=== PATIENT | female | born 1950 | race Caucasian/White ===

== ENCOUNTER 2017-03-05 17:11 | Emergency (ER) | payer BC ==
--- NOTE | 2017-03-05 17:34 | PDOC ---
History of Present Illness - History of Present Illness Initial Comments: 03/05/17 17:43 The patient is a 66 year old female with a past medical hx of HTN, breast cancer who presents to the ED complaining of pain to her right wrist for one week. The patient denies any trauma or injury to her wrist. She denies any overuse in her wrist. She reports she woke up one week ago with the pain and there has been no improvement. She has not taken any OTC medications for it. The patient denies any radiation of pain, numbness, or tingling. The patient has no further complaints at this time. <Lisseth Sousa - Last Filed: 03/05/17 18:20> - General History Source: Patient Exam Limitations: No Limitations <Khushbu José - Last Filed: 03/05/17 18:35> - General Chief Complaint: Pain Stated Complaint: RIGHT WRIST PAIN Time Seen by Provider: 03/05/17 17:20 Past History <Lisseth Sousa - Last Filed: 03/05/17 18:20> <Khushbu José - Last Filed: 03/05/17 18:35> - Past Medical History Allergies/Adverse Reactions: Allergies Allergy/AdvReac Type Severity Reaction Status Date / Time No Known Allergies Allergy Verified 03/05/17 17:51 Home Medications: Ambulatory Orders Exemestane [Aromasin -] 25 mg PO HS 03/05/17 Losartan/Hydrochlorothiazide [Hyzaar 50-12.5 Tablet] 1 each PO HS 03/05/17 Palbociclib [Ibrance] 125 mg PO HS 03/05/17 Review of Systems - Review of Systems Able to Perform ROS?: Yes Comments:: 03/05/17 17:51 GENERAL/CONSTITUTIONAL: No: fever, chills MUSCULOSKELETAL: +Right wrist pain NEUROLOGIC: No: paresthesias <Lisseth Sousa - Last Filed: 03/05/17 18:20> *Physical Exam - Physical Exam Comments: 03/05/17 18:20 GENERAL: The patient is in no acute distress. MUSCULOSKELETAL: +Tenderness to the right wrist with flexion and extension. SKIN: Warm, Dry, normal turgor, no rashes or lesions noted. <Lisseth Sousa - Last Filed: 03/05/17 18:20> Medical Decision Making - Medical Decision Making 03/05/17 17:34 A portion of this note was documented by scribe services under my direction. I have reviewed the details of the note, within reason, and agree with the documentation with the following case summary and management plan written by me. Nursing documentation reviewed and incorporated into medical decision making 03/05/17 18:30 This is a 66 yo RHD F h/o breast cancer presenting to the ER with a complaint of wrist pain She awoke with symptoms approximately 1 week ago No fevers No history of gout NO TRAUMA Mild swelling When she awakens in the morning, she sometimes feels like her wrist is "Catching " No prior episodes like this Pain worsens with wrist movement On examination: No snuff box tenderness No erythema No swelling 2+ RP, UP Hand warm Brisk cap refill Flexion and extension at wrist Xray appears to demonstrate no fracture Pt did not want motrin Will discharge to home Pt can follow up with her Orthopedist Dr Saleh Pt placed in wrist splint Will discharge to home follow up within 1 week <Khushbu José - Last Filed: 03/05/17 18:35> *DC/Admit/Observation/Transfer <Lisseth Sousa - Last Filed: 03/05/17 18:20> - Discharge Dispostion Admit: No <Khushbu José - Last Filed: 03/05/17 18:35> Diagnosis at time of Disposition: Right wrist pain - Discharge Dispostion Disposition: HOME Condition at time of disposition: Stable - Patient Instructions Printed Discharge Instructions: DI for Wrist Pain, Wrist Fracture Additional Instructions: Olive Alen Thank you for coming in to the ER today Please follow up with your orthopedic doctor within 2-3 days Sometimes, patients can have subtle wrist fractures that are not readily visible on Xray and require additional imaging like MRI Please take motrin as needed for pain Return to the ER IMMEDIATELY for any new symptoms, worsening of your pain, new trauma to the wrist, any other concerns or complaints
[2017-03-05 18:02] VITALS: BP 142/73; PULSE 90; TEMP 98.5; BMI 24.3
[2017-03-05] MEDS ORDERED: IBUPROFEN 600 MG TABLET (FP) PO ONE (18:13)
== END 2017-03-05 18:46 | disposition home or self-care (01) ==
LOC: FER 17:11
PROC: 2W3EX1Z Immobilization of Right Hand using Splint (ICD-10-PCS; principal; 2017-03-05)
DX: M25.531 Pain in right wrist (principal); Z85.3 Personal history of malignant neoplasm of breast; I10 Essential (primary) hypertension
CPT/HCPCS: 73110-TC-RT; 99282-25

== ENCOUNTER 2023-09-17 12:58 | Emergency (ER) | payer BC, OTHER ==
[2023-09-17 13:13] VITALS: BP 140/69; PULSE 95; RESP 18; TEMP 98.9; BMI 20.3
[2023-09-17] MEDS ORDERED: LIDOCAINE 2%/EPINEPHRINE 1:100000 (50 ML MD VIAL) INF ONE (13:53)
[2023-09-17] MEDS ORDERED: LIDO 2%/EPI 1:200000 PRESRVFRE (20 ML SDVIAL) ONE (13:54)
== END 2023-09-17 14:32 | disposition home or self-care (01) ==
LOC: FER 12:58
PROC: 0H9BXZZ Drainage of Right Upper Arm Skin, External Approach (ICD-10-PCS; principal; 2023-09-17)
DX: R22.31 Localized swelling, mass and lump, right upper limb (principal); L02.411 Cutaneous abscess of right axilla
CPT/HCPCS: 99282-25